=== PATIENT | female | born 2000 | race Two or more races ===

== ENCOUNTER 2020-05-11 20:06 | Emergency (ER) | payer SELFPAY ==
[~2020-05-11] VITALS: Ht 157.5 cm; Wt 65.8 kg
[2020-05-11 20:22] VITALS: BP 127/82
[2020-05-11] MEDS ORDERED: KETOROLAC TROMETH 60MG/2ML VIAL IM ONE (21:45)
[2020-05-11] MEDS ORDERED: LIDOCAINE 1% HCL (LOCAL ANESTH.) INJ 20ML MDV ID ONE (21:45)
[2020-05-11] MEDS ORDERED: TETANUS-DIPTH-ACEL PERTUSSIS 0.5ML SYR Tdap IM ONE (21:45)
== END 2020-05-11 22:45 | disposition home or self-care (01) ==
LOC: ER 20:06
DX: S90.454A Superficial foreign body, right lesser toe(s), initial encounter (principal); W45.8XXA Other foreign body or object entering through skin, initial encounter; Y93.89 Activity, other specified; Y92.89 Other specified places as the place of occurrence of the external cause; Y99.8 Other external cause status
CPT/HCPCS: 73630; 90471; 90715; 96372; 99284; J1885; J2001